=== PATIENT | male | born 1935 | race African-American/Black ===

== ENCOUNTER 2016-12-22 03:26 | Inpatient (IN) | payer OTHER ==
[2016-12-22] VITALS (49 sets, daily range): BP systolic 88–160; BP diastolic 42–110
[~2016-12-22] VITALS: Ht 177.8 cm; Wt 96.3 kg
[2016-12-22] MEDS ORDERED: SUCCINYLCHOLINE CHLORIDE 200MG/10ML VIAL IV ONE ×2 (04:00→08:50)
[2016-12-22] MEDS ORDERED: ETOMIDATE 2MG/ML 10ML VIAL IV ONE ×2 (04:00→04:30)
[2016-12-22] MEDS ORDERED: PROPOFOL 10MG/ML 100ML 100 ML IV ONE ×2 (04:00→08:04)
[2016-12-22 04:26] LABS: BASOPHILS % 0.9 % (0.0-2.0); EOSINOPHILS % 3.1 % (0.0-5.0); HEMATOCRIT. 40.6 % (42.0-52.0); HEMOGLOBIN. 13.2 g/dL (14.0-18.0); LYMPHOCYTES % 45.7 % (20.0-50.0); MEAN CORPUSCULAR HEMOGLOBIN 30.1 pg (28.0-32.0); MEAN CORPUSCULAR VOLUME 92.8 fL (80.0-94.0); MEAN PLATELET VOLUME 8.7 fl (7.4-10.4); NEUTROPHILS % 42.3 % (40.0-76.0); PLATELET 198 x1000/uL (130-400); RED BLOOD CELL COUNT 4.38 mill/uL (4.7-6.1)
[2016-12-22 04:42] LABS: INR 1.1; PARTIAL THROMBOPLASTIN TIME 31.7 sec (24.0-34.0); PROTHROMBIN TIME 11.6 sec
[2016-12-22 04:46] LABS: CARBON DIOXIDE 28 mEq/L (21-32); CHLORIDE 104 mEq/L (98-107); TROPONIN I 0.03 ng/mL (0.00-0.04)
[2016-12-22 05:32] LABS: BG BASE EXCESS -3.9 mmol/L (-2.0-2.0); BG CARBOXYHEMOGLOBIN 0.9 % (0.5-1.5); BG DEOXYHEMOGLOBIN 4.8 % (0.0-5.0); BG FRACTION INSPIRED OXYGEN 60; BG HCO3 ACT 23.8 mmol/L (22.0-26.0); BG METHEMOGLOBIN 0.3 % (0.0-1.5); BG OXYGEN SATURATION 95.1 % (92.0-98.5); BG PCO2 54.5 mmHg (35.0-45.0); BG PH 7.258 (7.350-7.450); BG PO2 87.1 mmHg (75.0-100.0); BG SAMPLE SITE RIGHT RADIAL; BG TIDAL VOLUME(mL) 500 mL; BG TOTAL HEMOGLOBIN 13.2 g/dL (12.0-18.0); BG VENT MODE VENT - A/C; BG VENT RATE 16 set
[2016-12-22] MEDS ORDERED: PROPOFOL 200MG/20ML VIAL IV ONE (08:15)
[2016-12-22] MEDS ORDERED: ONDANSETRON HCL 4MG/2ML VIAL IV ONE (08:15)
[2016-12-22] MEDS ORDERED: ASPIRIN 81MG TABLET PO SCH (12:45)
[2016-12-22] MEDS ORDERED: TIMO15DR12 EACHEYE (12:49)
[2016-12-22] MEDS ORDERED: ASPI-1159 PO (12:49)
[2016-12-22] MEDS ORDERED: ATOR40TA70 PO (12:49)
[2016-12-22] MEDS ORDERED: CARV6.2548 PO (12:49)
[2016-12-22] MEDS ORDERED: FURO40TA5 PO (12:49)
[2016-12-22] MEDS ORDERED: BRIM15DR2 EACHEYE (12:49)
[2016-12-22] MEDS ORDERED: [UNRECOGNIZED DRUG - OTHER] (13:08)
[2016-12-22] MEDS ORDERED: INSU100C3 SQ (13:08)
[2016-12-22] MEDS ORDERED: FUROSEMIDE 40MG/4ML VIAL IVP SCH (13:15)
[2016-12-22] MEDS ORDERED: ONDANSETRON HCL 4MG/2ML VIAL IV PRN (13:15)
[2016-12-22] MEDS ORDERED: ACETAMINOPHEN 650MG/20.3ML UDC NG PRN (13:15)
[2016-12-22] MEDS ORDERED: IPRATROPIUM/ALBUTEROL 0.5-3(2.5)MG/3ML NEB HHN SCH (13:15)
[2016-12-22] MEDS ORDERED: IPRATROPIUM/ALBUTEROL 0.5-3(2.5)MG/3ML NEB INH PRN (13:15)
[2016-12-22] MEDS: IPRATROPIUM/ALBUTEROL 0.5-3(2.5)MG/3ML NEB HHN SCH ×3 (13:52→20:54)
[2016-12-22] MEDS: LISINOPRIL 20MG TABLET PO SCH (14:04)
[2016-12-22] MEDS ORDERED: DEXTROSE 50% WATER 50ML SYRINGE IV PRN ×2 (14:15→20:00)
[2016-12-22] MEDS: PROPOFOL 10MG/ML 100ML 100 ML IV PRN ×2 (14:40→19:42)
[2016-12-22] MEDS: ENOXAPARIN 40MG/0.4ML SYR SUBCUT SCH (14:43)
[2016-12-22] MEDS: PANTOPRAZOLE SODIUM 40 MG/VIAL IV SCH (14:43)
[2016-12-22] MEDS: SODIUM CHLORIDE 0.9% INJ 3ML FLUSH IVF SCH ×2 (15:18→21:03)
[2016-12-22 15:48] LABS: CLARITY URINE CLEAR (CLEAR); COLOR URINE YELLOW (YELLOW); GLUCOSE URINE NEGATIVE (NEGATIVE); KETONES URINE NEGATIVE (NEGATIVE); LEUKOCYTE ESTERASE URINE NEGATIVE (NEGATIVE); NITRITE URINE NEGATIVE (NEGATIVE); OCCULT BLOOD URINE 3+ (NEGATIVE); PROTEIN URINE 1+ (NEGATIVE); UROBILINOGEN URINE 0.2 E.U./dL (0.2-1.0)
[2016-12-22] MEDS: CEFTRIAXONE 1 G PREMIX 50 ML IV SCH (15:56)
[2016-12-22 16:26] LABS: *AMPHETAMINES SCREEN URINE NEGATIVE (NEGATIVE); *BARBITURATES SCREEN URINE NEGATIVE (NEGATIVE); *BENZODIAZEPINES SCREEN URINE NEGATIVE (NEGATIVE); *COCAINE SCREEN URINE NEGATIVE (NEGATIVE); CANNABINOID URINE SCREEN NEGATIVE (NEGATIVE); METHADONE URINE SCREEN NEGATIVE (NEGATIVE); OPIATES URINE SCREEN NEGATIVE (NEGATIVE); PHENCYCLIDINE URINE SCREEN NEGATIVE (NEGATIVE)
[2016-12-22] MEDS ORDERED: BLOOD SUGAR DIAGNOSTIC STRIP TEST SCH (16:30)
[2016-12-22] MEDS: FUROSEMIDE 40MG/4ML VIAL IVP SCH (16:44)
[2016-12-22] MEDS ORDERED: INSULIN LISPRO 100 UNITS/ML SUBCUT SCH (17:00)
[2016-12-22] MEDS ORDERED: LISINOPRIL 10MG TABLET NG SCH (21:00)
[2016-12-22] MEDS: ATORVASTATIN CALCIUM 20MG TABLET PO SCH (21:02)
[2016-12-22] MEDS: CARVEDILOL 6.25 MG TABLET PO SCH (21:03)
[2016-12-22] MEDS: BLOOD SUGAR DIAGNOSTIC STRIP TEST SCH (23:29)
[2016-12-22] MEDS: INSULIN LISPRO 100 UNITS/ML SUBCUT SCH (23:29)
[2016-12-23] VITALS (90 sets, daily range): BP systolic 98–151; BP diastolic 49–121
[2016-12-23] MEDS: PROPOFOL 10MG/ML 100ML 100 ML IV PRN ×5 (00:19→19:57)
[2016-12-23] MEDS: DIPHENHYDRAMINE 50MG/ML VIAL IV PRN (01:32)
[2016-12-23] MEDS: IPRATROPIUM/ALBUTEROL 0.5-3(2.5)MG/3ML NEB HHN SCH ×4 (02:48→20:27)
[2016-12-23] MEDS: SODIUM CHLORIDE 0.9% INJ 3ML FLUSH IVF SCH ×3 (06:02→21:18)
[2016-12-23] MEDS: BLOOD SUGAR DIAGNOSTIC STRIP TEST SCH ×3 (06:02→17:33)
[2016-12-23] MEDS: INSULIN LISPRO 100 UNITS/ML SUBCUT SCH ×3 (06:02→17:37)
[2016-12-23] MEDS: FUROSEMIDE 40MG/4ML VIAL IVP SCH ×2 (06:03→17:37)
[2016-12-23 06:41] LABS: BASOPHILS % 0.2 % (0.0-2.0); EOSINOPHILS % 0.8 % (0.0-5.0); HEMATOCRIT. 32.5 % (42.0-52.0); HEMOGLOBIN. 10.8 g/dL (14.0-18.0); LYMPHOCYTES % 16.3 % (20.0-50.0); MEAN CORPUSCULAR HEMOGLOBIN 30.2 pg (28.0-32.0); MEAN CORPUSCULAR VOLUME 90.4 fL (80.0-94.0); MEAN PLATELET VOLUME 9.1 fl (7.4-10.4); NEUTROPHILS % 71.7 % (40.0-76.0); PLATELET 138 x1000/uL (130-400); RED CELL DISTRIBUTION WIDTH 15.7 % (11.6-14.6)
[2016-12-23] MEDS: PANTOPRAZOLE SODIUM 40 MG/VIAL IV SCH (08:00)
[2016-12-23] MEDS: CARVEDILOL 6.25 MG TABLET PO SCH ×2 (08:01→21:18)
[2016-12-23] MEDS: ASPIRIN 81MG TABLET PEG SCH (08:01)
[2016-12-23] MEDS: LISINOPRIL 20MG TABLET PO SCH (08:01)
[2016-12-23] MEDS: TIMOLOL MALEATE 0.5% OPHTH DROPS 5ML EACHEYE SCH (08:02)
[2016-12-23 08:18] LABS: BG BASE EXCESS 0.7 mmol/L (-2.0-2.0); BG CARBOXYHEMOGLOBIN 0.4 % (0.5-1.5); BG DEOXYHEMOGLOBIN 1.7 % (0.0-5.0); BG HCO3 ACT 24.7 mmol/L (22.0-26.0); BG METHEMOGLOBIN 0.4 % (0.0-1.5); BG OXYGEN SATURATION 98.3 % (92.0-98.5); BG OXYHEMOGLOBIN 97.5 % (94.0-97.0); BG PCO2 37.5 mmHg (35.0-45.0); BG PH 7.437 (7.350-7.450); BG PO2 118.7 mmHg (75.0-100.0); BG SAMPLE SITE RIGHT BRACHIAL; BG TIDAL VOLUME(mL) 500 mL; BG TOTAL HEMOGLOBIN 11.8 g/dL (12.0-18.0); BG VENT MODE VENT - A/C; BG VENT RATE 16 set
[2016-12-23] MEDS ORDERED: ASPIRIN 81MG EC TABLET PO SCH (09:00)
[2016-12-23] MEDS ORDERED: CARVEDILOL 6.25 MG TABLET PO SCH (09:00)
[2016-12-23] MEDS: CEFTRIAXONE 1 G PREMIX 50 ML IV SCH (13:48)
[2016-12-23] MEDS: ENOXAPARIN 40MG/0.4ML SYR SUBCUT SCH (13:48)
[2016-12-23] MEDS: ATORVASTATIN CALCIUM 20MG TABLET PO SCH (21:18)
[2016-12-23] MEDS: BRIMONIDINE 0.2% OPHTH DROPS 5ML BOTHEYE SCH (21:18)
[2016-12-24] VITALS (63 sets, daily range): BP systolic 115–170; BP diastolic 50–96
[2016-12-24] MEDS: INSULIN LISPRO 100 UNITS/ML SUBCUT SCH ×5 (00:04→23:19)
[2016-12-24] MEDS: BLOOD SUGAR DIAGNOSTIC STRIP TEST SCH ×5 (00:05→23:15)
[2016-12-24] MEDS: PROPOFOL 10MG/ML 100ML 100 ML IV PRN ×3 (01:57→23:45)
[2016-12-24] MEDS: IPRATROPIUM/ALBUTEROL 0.5-3(2.5)MG/3ML NEB HHN SCH ×4 (02:09→20:57)
[2016-12-24] MEDS: SODIUM CHLORIDE 0.9% INJ 3ML FLUSH IVF SCH ×3 (05:24→21:53)
[2016-12-24] MEDS: FUROSEMIDE 40MG/4ML VIAL IVP SCH ×2 (06:38→17:39)
[2016-12-24 08:23] LABS: BG BASE EXCESS 4.6 mmol/L (-2.0-2.0); BG CARBOXYHEMOGLOBIN 0.2 % (0.5-1.5); BG DEOXYHEMOGLOBIN 2.5 % (0.0-5.0); BG FRACTION INSPIRED OXYGEN 40; BG HCO3 ACT 26.3 mmol/L (22.0-26.0); BG METHEMOGLOBIN 0.2 % (0.0-1.5); BG OXYGEN SATURATION 97.5 % (92.0-98.5); BG OXYHEMOGLOBIN 97.1 % (94.0-97.0); BG PCO2 30.1 mmHg (35.0-45.0); BG PO2 95.3 mmHg (75.0-100.0); BG SAMPLE SITE RIGHT BRACHIAL; BG TIDAL VOLUME(mL) 500 mL; BG TOTAL HEMOGLOBIN 12.3 g/dL (12.0-18.0); BG VENT MODE VENT - A/C; BG VENT RATE 16 set
[2016-12-24 08:53] LABS: BASOPHILS % 0.7 % (0.0-2.0); EOSINOPHILS % 2.8 % (0.0-5.0); HEMATOCRIT. 33.4 % (42.0-52.0); HEMOGLOBIN. 11.2 g/dL (14.0-18.0); MEAN CORPUSCULAR HEMOGLOBIN 30.3 pg (28.0-32.0); MEAN CORPUSCULAR VOLUME 90.7 fL (80.0-94.0); MEAN PLATELET VOLUME 9.2 fl (7.4-10.4); MONOCYTES % 13.5 % (2.0-8.0); PLATELET 141 x1000/uL (130-400); RED BLOOD CELL COUNT 3.68 mill/uL (4.7-6.1); RED CELL DISTRIBUTION WIDTH 15.7 % (11.6-14.6)
[2016-12-24] MEDS: PANTOPRAZOLE SODIUM 40 MG/VIAL IV SCH (08:59)
[2016-12-24] MEDS: CARVEDILOL 6.25 MG TABLET PO SCH ×3 (08:59→21:53)
[2016-12-24] MEDS: ASPIRIN 81MG TABLET PEG SCH (08:59)
[2016-12-24] MEDS: LISINOPRIL 20MG TABLET PO SCH (08:59)
[2016-12-24] MEDS: TIMOLOL MALEATE 0.5% OPHTH DROPS 5ML EACHEYE SCH (09:00)
[2016-12-24] MEDS: BRIMONIDINE 0.2% OPHTH DROPS 5ML BOTHEYE SCH (09:00)
[2016-12-24] MEDS ORDERED: POTASSIUM CHLORIDE 20MEQ/PACKET NG SCH (10:15)
[2016-12-24] MEDS ORDERED: MORPHINE SULFATE 2 MG/ML CPJ (NOT FOR IM USE) IV PRN (11:30)
[2016-12-24] MEDS: ACETYLCYSTEINE 100MG/ML 10% VIAL 4ML INH SCH ×2 (13:56→20:58)
[2016-12-24] MEDS: CEFTRIAXONE 1 G PREMIX 50 ML IV SCH (15:29)
[2016-12-24] MEDS: ENOXAPARIN 40MG/0.4ML SYR SUBCUT SCH (15:29)
[2016-12-24] MEDS: MORPHINE SULFATE 2 MG/ML CPJ (NOT FOR IM USE) IV PRN (16:58)
[2016-12-24] MEDS: ATORVASTATIN CALCIUM 20MG TABLET PO SCH (20:08)
[2016-12-25] VITALS (27 sets, daily range): BP systolic 109–164; BP diastolic 52–88
[2016-12-25] MEDS: IPRATROPIUM/ALBUTEROL 0.5-3(2.5)MG/3ML NEB HHN SCH ×4 (02:06→20:28)
[2016-12-25 04:51] LABS: BASOPHILS % 0.4 % (0.0-2.0); EOSINOPHILS % 4.1 % (0.0-5.0); HEMATOCRIT. 35.4 % (42.0-52.0); HEMOGLOBIN. 11.8 g/dL (14.0-18.0); LYMPHOCYTES % 17.5 % (20.0-50.0); MEAN CORPUSCULAR HEMOGLOBIN 30.5 pg (28.0-32.0); MEAN PLATELET VOLUME 8.9 fl (7.4-10.4); MONOCYTES % 13.3 % (2.0-8.0); NEUTROPHILS % 64.7 % (40.0-76.0); PLATELET 152 x1000/uL (130-400); RED BLOOD CELL COUNT 3.89 mill/uL (4.7-6.1); RED CELL DISTRIBUTION WIDTH 15.8 % (11.6-14.6)
[2016-12-25] MEDS: BLOOD SUGAR DIAGNOSTIC STRIP TEST SCH ×3 (05:07→18:11)
[2016-12-25] MEDS: SODIUM CHLORIDE 0.9% INJ 3ML FLUSH IVF SCH ×3 (05:07→21:01)
[2016-12-25] MEDS: INSULIN LISPRO 100 UNITS/ML SUBCUT SCH ×3 (05:09→18:00)
[2016-12-25] MEDS: FUROSEMIDE 40MG/4ML VIAL IVP SCH ×2 (06:24→17:46)
[2016-12-25] MEDS: PROPOFOL 10MG/ML 100ML 100 ML IV PRN (06:38)
[2016-12-25] MEDS: ACETYLCYSTEINE 100MG/ML 10% VIAL 4ML INH SCH ×2 (07:39→20:29)
[2016-12-25] MEDS: LISINOPRIL 20MG TABLET PO SCH (08:37)
[2016-12-25] MEDS: PANTOPRAZOLE SODIUM 40 MG/VIAL IV SCH (08:37)
[2016-12-25] MEDS: ASPIRIN 81MG TABLET PEG SCH (08:38)
[2016-12-25] MEDS: CARVEDILOL 6.25 MG TABLET PO SCH ×2 (08:38→20:41)
[2016-12-25] MEDS: POTASSIUM CHLORIDE 20MEQ/PACKET NG SCH (08:38)
[2016-12-25] MEDS: TIMOLOL MALEATE 0.5% OPHTH DROPS 5ML EACHEYE SCH (08:40)
[2016-12-25] MEDS: BRIMONIDINE 0.2% OPHTH DROPS 5ML BOTHEYE SCH (08:40)
[2016-12-25] MEDS: DIPHENHYDRAMINE 50MG/ML VIAL IV PRN (10:42)
[2016-12-25] MEDS: MORPHINE SULFATE 2 MG/ML CPJ (NOT FOR IM USE) IV PRN ×2 (10:43→15:09)
[2016-12-25] MEDS ORDERED: POTASSIUM CHLORIDE 20MEQ/PACKET NG SCH (10:45)
[2016-12-25] MEDS: CEFTRIAXONE 1 G PREMIX 50 ML IV SCH (13:59)
[2016-12-25] MEDS: ENOXAPARIN 40MG/0.4ML SYR SUBCUT SCH (14:00)
[2016-12-25] MEDS: BUDESONIDE 0.5MG/2ML NEB HHN SCH (20:28)
[2016-12-25] MEDS: ATORVASTATIN CALCIUM 20MG TABLET PO SCH (20:41)
[2016-12-26] VITALS (25 sets, daily range): BP systolic 111–157; BP diastolic 42–72
[2016-12-26] MEDS: BLOOD SUGAR DIAGNOSTIC STRIP TEST SCH ×4 (00:50→17:54)
[2016-12-26] MEDS: IPRATROPIUM/ALBUTEROL 0.5-3(2.5)MG/3ML NEB HHN SCH ×4 (02:01→20:07)
[2016-12-26] MEDS: SODIUM CHLORIDE 0.9% INJ 3ML FLUSH IVF SCH ×3 (05:14→21:14)
[2016-12-26] MEDS: INSULIN LISPRO 100 UNITS/ML SUBCUT SCH ×4 (06:32→17:56)
[2016-12-26] MEDS: FUROSEMIDE 40MG/4ML VIAL IVP SCH ×2 (06:32→17:54)
[2016-12-26] MEDS: BUDESONIDE 0.5MG/2ML NEB HHN SCH ×2 (07:42→20:07)
[2016-12-26] MEDS: PANTOPRAZOLE SODIUM 40 MG/VIAL IV SCH (08:00)
[2016-12-26] MEDS: POTASSIUM CHLORIDE 20MEQ/PACKET NG SCH (08:00)
[2016-12-26] MEDS: LISINOPRIL 20MG TABLET PO SCH (08:01)
[2016-12-26] MEDS: CARVEDILOL 6.25 MG TABLET PO SCH ×2 (08:01→21:10)
[2016-12-26] MEDS: ASPIRIN 81MG TABLET PEG SCH (08:01)
[2016-12-26] MEDS: TIMOLOL MALEATE 0.5% OPHTH DROPS 5ML EACHEYE SCH (08:02)
[2016-12-26] MEDS: BRIMONIDINE 0.2% OPHTH DROPS 5ML BOTHEYE SCH (08:02)
[2016-12-26 09:13] LABS: BG BASE EXCESS 5.9 mmol/L (-2.0-2.0); BG CARBOXYHEMOGLOBIN 0.2 % (0.5-1.5); BG DEOXYHEMOGLOBIN 1.9 % (0.0-5.0); BG FRACTION INSPIRED OXYGEN 40; BG HCO3 ACT 30.7 mmol/L (22.0-26.0); BG METHEMOGLOBIN 0.3 % (0.0-1.5); BG OXYGEN SATURATION 98.1 % (92.0-98.5); BG OXYHEMOGLOBIN 97.6 % (94.0-97.0); BG PCO2 45.4 mmHg (35.0-45.0); BG PH 7.448 (7.350-7.450); BG PO2 118.1 mmHg (75.0-100.0); BG PRESSURE SUPPORT 8; BG SAMPLE SITE RIGHT BRACHIAL; BG TOTAL HEMOGLOBIN 12.2 g/dL (12.0-18.0); BG VENT MODE VENT - CPAP
[2016-12-26] MEDS: CEFTRIAXONE 1 G PREMIX 50 ML IV SCH (14:10)
[2016-12-26] MEDS: ENOXAPARIN 40MG/0.4ML SYR SUBCUT SCH (14:10)
[2016-12-26] MEDS: ATORVASTATIN CALCIUM 20MG TABLET PO SCH (21:10)
[2016-12-27] VITALS (48 sets, daily range): BP systolic 105–211; BP diastolic 46–142
[2016-12-27] MEDS: BLOOD SUGAR DIAGNOSTIC STRIP TEST SCH ×5 (00:36→23:40)
[2016-12-27] MEDS: CLONIDINE 0.1MG TABLET NG PRN ×2 (01:56→15:59)
[2016-12-27] MEDS: IPRATROPIUM/ALBUTEROL 0.5-3(2.5)MG/3ML NEB HHN SCH ×4 (01:56→19:44)
[2016-12-27] MEDS: MORPHINE SULFATE 2 MG/ML CPJ (NOT FOR IM USE) IV PRN ×2 (04:04→16:00)
[2016-12-27 05:57] LABS: BASOPHILS % 0.4 % (0.0-2.0); EOSINOPHILS % 4.8 % (0.0-5.0); HEMATOCRIT. 39.2 % (42.0-52.0); HEMOGLOBIN. 12.9 g/dL (14.0-18.0); LYMPHOCYTES % 21.6 % (20.0-50.0); MEAN CORPUSCULAR HEMOGLOBIN 30.2 pg (28.0-32.0); MEAN CORPUSCULAR VOLUME 91.4 fL (80.0-94.0); MEAN PLATELET VOLUME 8.8 fl (7.4-10.4); MONOCYTES % 10.9 % (2.0-8.0); NEUTROPHILS % 62.3 % (40.0-76.0); PLATELET 197 x1000/uL (130-400); RED BLOOD CELL COUNT 4.28 mill/uL (4.7-6.1); RED CELL DISTRIBUTION WIDTH 15.6 % (11.6-14.6)
[2016-12-27 06:15] LABS: CARBON DIOXIDE 34 mEq/L (21-32); CHLORIDE 102 mEq/L (98-107); TROPONIN I 0.09 ng/mL (0.00-0.04)
[2016-12-27] MEDS: INSULIN LISPRO 100 UNITS/ML SUBCUT SCH ×5 (06:57→23:41)
[2016-12-27] MEDS: FUROSEMIDE 40MG/4ML VIAL IVP SCH (06:57)
[2016-12-27] MEDS: SODIUM CHLORIDE 0.9% INJ 3ML FLUSH IVF SCH ×3 (06:58→21:47)
[2016-12-27] MEDS: TIMOLOL MALEATE 0.5% OPHTH DROPS 5ML EACHEYE SCH (08:02)
[2016-12-27] MEDS: BRIMONIDINE 0.2% OPHTH DROPS 5ML BOTHEYE SCH (08:02)
[2016-12-27] MEDS: CARVEDILOL 6.25 MG TABLET PO SCH ×2 (08:03→20:15)
[2016-12-27] MEDS: LISINOPRIL 20MG TABLET PO SCH (08:03)
[2016-12-27] MEDS: POTASSIUM CHLORIDE 20MEQ/PACKET NG SCH (08:03)
[2016-12-27] MEDS: ASPIRIN 81MG TABLET PEG SCH (08:03)
[2016-12-27] MEDS: PANTOPRAZOLE SODIUM 40 MG/VIAL IV SCH (08:03)
[2016-12-27] MEDS: BUDESONIDE 0.5MG/2ML NEB HHN SCH ×2 (08:37→19:43)
[2016-12-27] MEDS ORDERED: POTASSIUM CHLORIDE 20MEQ TABLET SR PO SCH (09:30)
[2016-12-27 10:18] LABS: AMMONIA 16 uMol/L (<32)
[2016-12-27] MEDS: CEFTRIAXONE 1 G PREMIX 50 ML IV SCH (13:47)
[2016-12-27] MEDS: ENOXAPARIN 40MG/0.4ML SYR SUBCUT SCH (13:47)
[2016-12-27] MEDS: ATORVASTATIN CALCIUM 20MG TABLET PO SCH (20:14)
[2016-12-27] MEDS: FUROSEMIDE 40MG TABLET PO SCH (20:14)
[2016-12-27] MEDS: DIPHENHYDRAMINE 50MG/ML VIAL IV PRN (21:42)
[2016-12-28] VITALS (18 sets, daily range): BP systolic 107–180; BP diastolic 55–92
[2016-12-28] MEDS: IPRATROPIUM/ALBUTEROL 0.5-3(2.5)MG/3ML NEB HHN SCH ×4 (01:44→20:35)
[2016-12-28 05:26] LABS: BASOPHILS % 0.7 % (0.0-2.0); EOSINOPHILS % 5.5 % (0.0-5.0); HEMATOCRIT. 35.1 % (42.0-52.0); HEMOGLOBIN. 11.6 g/dL (14.0-18.0); LYMPHOCYTES % 22.1 % (20.0-50.0); MEAN CORPUSCULAR HEMOGLOBIN 30.2 pg (28.0-32.0); MEAN CORPUSCULAR VOLUME 91.2 fL (80.0-94.0); MEAN PLATELET VOLUME 8.6 fl (7.4-10.4); MONOCYTES % 14.2 % (2.0-8.0); NEUTROPHILS % 57.5 % (40.0-76.0); PLATELET 179 x1000/uL (130-400); RED BLOOD CELL COUNT 3.85 mill/uL (4.7-6.1); RED CELL DISTRIBUTION WIDTH 14.8 % (11.6-14.6)
[2016-12-28] MEDS: INSULIN LISPRO 100 UNITS/ML SUBCUT SCH ×4 (05:42→23:30)
[2016-12-28] MEDS: BLOOD SUGAR DIAGNOSTIC STRIP TEST SCH ×3 (05:42→23:30)
[2016-12-28] MEDS: SODIUM CHLORIDE 0.9% INJ 3ML FLUSH IVF SCH ×3 (05:43→21:46)
[2016-12-28] MEDS: CLONIDINE 0.1MG TABLET NG PRN ×3 (06:11→21:52)
[2016-12-28] MEDS: BUDESONIDE 0.5MG/2ML NEB HHN SCH ×2 (08:54→20:35)
[2016-12-28] MEDS: LISINOPRIL 20MG TABLET PO SCH (09:00)
[2016-12-28] MEDS: CARVEDILOL 6.25 MG TABLET PO SCH ×2 (09:00→21:46)
[2016-12-28] MEDS ORDERED: HYDROCODONE/APAP 7.5/325MG 1 TAB TABLET PO PRN (09:15)
[2016-12-28] MEDS: POTASSIUM CHLORIDE 20MEQ/PACKET NG SCH (09:37)
[2016-12-28] MEDS: BRIMONIDINE 0.2% OPHTH DROPS 5ML BOTHEYE SCH (09:37)
[2016-12-28] MEDS: ASPIRIN 81MG TABLET PEG SCH (09:37)
[2016-12-28] MEDS: TIMOLOL MALEATE 0.5% OPHTH DROPS 5ML EACHEYE SCH (09:37)
[2016-12-28] MEDS: PANTOPRAZOLE SODIUM 40 MG/VIAL IV SCH (09:41)
[2016-12-28] MEDS: FUROSEMIDE 40MG TABLET PO SCH ×2 (09:41→21:46)
[2016-12-28 10:06] LABS: PHOSPHORUS 3.4 mg/dL (2.5-4.9)
[2016-12-28] MEDS: CEFTRIAXONE 1 G PREMIX 50 ML IV SCH (15:01)
[2016-12-28] MEDS: ENOXAPARIN 40MG/0.4ML SYR SUBCUT SCH (15:02)
[2016-12-28] MEDS: DIPHENHYDRAMINE 50MG/ML VIAL IV PRN (21:00)
[2016-12-28] MEDS: ATORVASTATIN CALCIUM 20MG TABLET PO SCH (21:45)
[2016-12-29] VITALS (14 sets, daily range): BP systolic 76–155; BP diastolic 38–81
[2016-12-29] MEDS: IPRATROPIUM/ALBUTEROL 0.5-3(2.5)MG/3ML NEB HHN SCH ×4 (01:53→20:28)
[2016-12-29] MEDS: BLOOD SUGAR DIAGNOSTIC STRIP TEST SCH ×3 (05:45→18:00)
[2016-12-29] MEDS: INSULIN LISPRO 100 UNITS/ML SUBCUT SCH ×3 (05:49→18:07)
[2016-12-29] MEDS: SODIUM CHLORIDE 0.9% INJ 3ML FLUSH IVF SCH ×3 (05:49→20:12)
[2016-12-29] MEDS: TIMOLOL MALEATE 0.5% OPHTH DROPS 5ML EACHEYE SCH (09:36)
[2016-12-29] MEDS: PANTOPRAZOLE SODIUM 40 MG/VIAL IV SCH (09:36)
[2016-12-29] MEDS: BRIMONIDINE 0.2% OPHTH DROPS 5ML BOTHEYE SCH (09:36)
[2016-12-29] MEDS: LISINOPRIL 20MG TABLET PO SCH (09:36)
[2016-12-29] MEDS: FUROSEMIDE 40MG TABLET PO SCH ×2 (09:37→20:12)
[2016-12-29] MEDS: ASPIRIN 81MG TABLET PEG SCH (09:37)
[2016-12-29] MEDS: CARVEDILOL 6.25 MG TABLET PO SCH ×2 (09:37→20:11)
[2016-12-29] MEDS: POTASSIUM CHLORIDE 20MEQ/PACKET NG SCH (09:37)
[2016-12-29] MEDS: ENOXAPARIN 40MG/0.4ML SYR SUBCUT SCH (14:04)
[2016-12-29] MEDS: CEFTRIAXONE 1 G PREMIX 50 ML IV SCH (14:24)
[2016-12-29] MEDS: ATORVASTATIN CALCIUM 20MG TABLET PO SCH (20:11)
[2016-12-29] MEDS: DIPHENHYDRAMINE 50MG/ML VIAL IV PRN (20:12)
[2016-12-30] VITALS (9 sets, daily range): BP systolic 107–152; BP diastolic 52–76
[2016-12-30] MEDS: BLOOD SUGAR DIAGNOSTIC STRIP TEST SCH ×5 (00:01→23:39)
[2016-12-30] MEDS: IPRATROPIUM/ALBUTEROL 0.5-3(2.5)MG/3ML NEB HHN SCH ×3 (02:42→14:19)
[2016-12-30] MEDS: INSULIN LISPRO 100 UNITS/ML SUBCUT SCH ×5 (05:32→23:44)
[2016-12-30] MEDS: SODIUM CHLORIDE 0.9% INJ 3ML FLUSH IVF SCH ×3 (05:32→20:51)
[2016-12-30] MEDS: CARVEDILOL 6.25 MG TABLET PO SCH ×2 (10:29→20:51)
[2016-12-30] MEDS: FUROSEMIDE 40MG TABLET PO SCH ×2 (10:29→20:51)
[2016-12-30] MEDS: PANTOPRAZOLE SODIUM 40 MG/VIAL IV SCH (10:29)
[2016-12-30] MEDS: POTASSIUM CHLORIDE 20MEQ/PACKET NG SCH (10:29)
[2016-12-30] MEDS: LISINOPRIL 20MG TABLET PO SCH (10:30)
[2016-12-30] MEDS: TIMOLOL MALEATE 0.5% OPHTH DROPS 5ML EACHEYE SCH (10:30)
[2016-12-30] MEDS: ASPIRIN 81MG TABLET PEG SCH (10:30)
[2016-12-30] MEDS: BRIMONIDINE 0.2% OPHTH DROPS 5ML BOTHEYE SCH (10:30)
[2016-12-30] MEDS ORDERED: POTASSIUM CHLORIDE INJ 40 MEQ in DEXT 5% WATER 250 ML IV NR (13:30)
[2016-12-30] MEDS: ENOXAPARIN 40MG/0.4ML SYR SUBCUT SCH (13:34)
[2016-12-30] MEDS: CEFTRIAXONE 1 G PREMIX 50 ML IV SCH (14:14)
[2016-12-30] MEDS: ATORVASTATIN CALCIUM 20MG TABLET PO SCH (20:51)
[2016-12-31] VITALS (11 sets, daily range): BP systolic 106–161; BP diastolic 51–96
[2016-12-31] MEDS: IPRATROPIUM/ALBUTEROL 0.5-3(2.5)MG/3ML NEB HHN SCH ×3 (00:24→13:17)
[2016-12-31] MEDS: BLOOD SUGAR DIAGNOSTIC STRIP TEST SCH ×2 (05:43→11:38)
[2016-12-31] MEDS: INSULIN LISPRO 100 UNITS/ML SUBCUT SCH ×2 (05:43→12:28)
[2016-12-31] MEDS: SODIUM CHLORIDE 0.9% INJ 3ML FLUSH IVF SCH ×2 (05:43→14:42)
[2016-12-31] MEDS: CARVEDILOL 6.25 MG TABLET PO SCH (09:04)
[2016-12-31] MEDS: PANTOPRAZOLE SODIUM 40 MG/VIAL IV SCH (09:04)
[2016-12-31] MEDS: POTASSIUM CHLORIDE 20MEQ/PACKET NG SCH (09:04)
[2016-12-31] MEDS: FUROSEMIDE 40MG TABLET PO SCH (09:04)
[2016-12-31] MEDS: ASPIRIN 81MG TABLET PEG SCH (09:04)
[2016-12-31] MEDS: LISINOPRIL 20MG TABLET PO SCH (09:04)
[2016-12-31] MEDS: TIMOLOL MALEATE 0.5% OPHTH DROPS 5ML EACHEYE SCH (09:06)
[2016-12-31] MEDS: BRIMONIDINE 0.2% OPHTH DROPS 5ML BOTHEYE SCH (09:06)
[2016-12-31] MEDS ORDERED: POTASSIUM CHLORIDE 20MEQ TABLET SR PO SCH (14:30)
[2016-12-31] MEDS ORDERED: POTASSIUM CHLORIDE 20MEQ/PACKET PO NR (14:30)
[2016-12-31] MEDS: ENOXAPARIN 40MG/0.4ML SYR SUBCUT SCH (14:51)
[2016-12-31] MEDS: CEFTRIAXONE 1 G PREMIX 50 ML IV SCH (15:20)
== END 2016-12-31 18:15 | DRG 207 ==
LOC: EDBEDREQ 05:48 → EDBEDREQSVC 05:58 → EDBEDREQTM 06:08 → EDBEDREQ 06:08 → ER 08:03 → ENRESERV 11:01 → MICUNO 11:52 → 5EST 12-28 12:30
PROVIDERS: ADMIT Internal Medicine; ATTEND Internal Medicine
PROC: 02HV33Z Insertion of Infusion Device into Superior Vena Cava, Percutaneous Approach (ICD-10-PCS; principal; 2016-12-22)
PROC: 5A1955Z Respiratory Ventilation, Greater than 96 Consecutive Hours (ICD-10-PCS; 2016-12-22)
PROC: 0BH17EZ Insertion of Endotracheal Airway into Trachea, Via Natural or Artificial Opening (ICD-10-PCS; 2016-12-22)
DX: J96.00 Acute respiratory failure, unspecified whether with hypoxia or hypercapnia (principal); I50.43 Acute on chronic combined systolic (congestive) and diastolic (congestive) heart failure; G93.40 Encephalopathy, unspecified; N17.9 Acute kidney failure, unspecified; E87.4 Mixed disorder of acid-base balance; K56.7 Ileus, unspecified; I69.351 Hemiplegia and hemiparesis following cerebral infarction affecting right dominant side; I11.0 Hypertensive heart disease with heart failure; E11.65 Type 2 diabetes mellitus with hyperglycemia; I25.5 Ischemic cardiomyopathy; E78.5 Hyperlipidemia, unspecified; E66.9 Obesity, unspecified; E87.6 Hypokalemia; F29 Unspecified psychosis not due to a substance or known physiological condition; I25.10 Atherosclerotic heart disease of native coronary artery without angina pectoris; I49.3 Ventricular premature depolarization; R47.1 Dysarthria and anarthria; R26.9 Unspecified abnormalities of gait and mobility; Z95.1 Presence of aortocoronary bypass graft; Z95.0 Presence of cardiac pacemaker; Z68.30 Body mass index [BMI] 30.0-30.9, adult
CPT/HCPCS: 31500; 36415; 36556; 36600; 70450; 71010; 74000; 80048; 80053; 80305; 81001; 82140; 82375; 82805; 82962; 83605; 83735; 84100; 84443; 84478; 84484; 85025; 85610; 85730; 86850; 86900; 87040; 87493; 92610; 93005; 93306; 93970; 94002; 94003; 94640; 94664; 97163; 97167; 99291; C9113; J0330; J0696; J1200; J1650; J1815; J1940; J2270; J2704; J3480; J7050; J7060; J7608; J7620; J7626; A4315